=== PATIENT | male | born 1950 | race American Indian/Alaskan Native ===

== ENCOUNTER 2017-12-26 14:46 | Emergency (ER) | payer OTHER ==
[2017-12-26 14:59] VITALS: TEMP 97.6
[2017-12-26] MEDS ORDERED: Sodium Chloride 0.9% 1,000 ML IV ONE (15:11)
[2017-12-26] MEDS ORDERED: Sodium Chloride 0.9% 1,000 ML ONE (15:27)
[2017-12-26 15:34] LABS: BASO % 0.7 % (0.0-2.0); EOS # 0.1 K/uL (0.0-0.7); EOS % 1.1 % (0.0-4.0); HEMOGLOBIN 15.3 g/dL (12.0-18.0); LYMPH # 1.3 K/uL (1.0-4.3); LYMPH % 20.9 % (20.0-40.0); MEAN CELL VOLUME 84.5 fL (80.0-94.0); MEAN CORPUSCULAR HEMOGLOBIN 28.9 pg (27.0-31.0); MEAN CORPUSCULAR HGB CONC 34.2 g/dL (33.0-37.0); MEAN PLATELET VOLUME 7.8 fL (7.2-11.7); MONO # 0.3 K/uL (0.0-0.8); MONO % 5.4 % (0.0-10.0); NEUT # 4.5 K/uL (1.8-7.0); NEUT % 71.9 % (50.0-75.0); RBC 5.3 Mil/uL (4.40-5.90); RED CELL DISTRIBUTION WIDTH 16.5 % (11.5-14.5); WHITE BLOOD COUNT 6.2 K/uL (4.8-10.8)
[2017-12-26 15:44] LABS: INR 1.2; PROTHROMBIN TIME 13.1 SECONDS (9.7-12.2)
--- NOTE | 2017-12-26 15:45 | C.PDOC ---
History Of Present Illness 67 years old male brought to ED by EMS for evaluation of near syncope. Patient states he was cooking in the kitchen and it was hot. Patient states he started sweating and felt lightheaded then went to another room and layed down with the fan facing him. Patient states he felt "more hot" so he checked his blood pressure and found it to be "a little high" so he took his blood pressure medication and called 911. Denies chest pain, SOB, headache, dizziness, or vision changes. As EMS arrived to the patient's home, he was given aspirin. Patient stated on route that he felt better. In addition, patient admits he did not eat today and has been experiencing cold like symptoms such as cough, congestion, and right ear pain for the past few days. Time Seen by Provider: 12/26/17 15:01 Chief Complaint (Nursing): Syncope History Per: Patient, EMS History/Exam Limitations: no limitations Onset/Duration Of Symptoms: Hrs Current Symptoms Are (Timing): Still Present Recent travel outside of the [place]: No Past Medical History Reviewed: Historical Data, Nursing Documentation, Vital Signs Vital Signs: Last Vital Signs Temp 97.6 F 12/26/17 14:54 Pulse 77 12/26/17 16:07 Resp 18 12/26/17 16:07 BP 142/76 12/26/17 16:07 Pulse Ox 96 12/26/17 16:51 - Medical History PMH: HTN Surgical History: Hernia Repair Family History: States: Unknown Family Hx - Social History Hx Alcohol Use: Yes Hx Substance Use: No - Immunization History Hx Tetanus Toxoid Vaccination: No Hx Influenza Vaccination: No Hx Pneumococcal Vaccination: No Review Of Systems Constitutional: Positive for: Sweats Eyes: Negative for: Vision Change ENT: Positive for: Ear Pain (right ear), Nose Congestion Cardiovascular: Negative for: Chest Pain Respiratory: Positive for: Cough. Negative for: Shortness of Breath Gastrointestinal: Negative for: Nausea, Vomiting, Abdominal Pain, Diarrhea Neurological: Negative for: Weakness, Numbness, Dizziness Physical Exam - Physical Exam Appears: Well, Non-toxic, No Acute Distress Skin: Normal Color, Warm, Dry Head: Atraumatic, Normacephalic, No Tenderness, No Swelling Eye(s): bilateral: Normal Inspection, PERRL, EOMI, Other (no nystagmus) Ear(s): Left: Normal, Right: Other (Excessive cerumen. No TM Erythema. ) Oral Mucosa: Moist Throat: Normal, No Erythema, No Exudate Neck: Supple Chest: Symmetrical, No Tenderness Cardiovascular: Rhythm Regular Respiratory: Normal Breath Sounds, No Decreased Breath Sounds, No Rales, No Rhonchi, No Wheezing Gastrointestinal/Abdominal: Soft, No Tenderness, No Distention, Other (Obese) Extremity: Normal ROM, No Pedal Edema, No Deformity Neurological/Psych: Oriented x3, Normal Speech, Normal Motor, Normal Sensation, Other (no focal deficits ) Gait: Steady ED Course And Treatment - Laboratory Results Result Diagrams: 12/26/17 15:31 12/26/17 15:31 O2 Sat by Pulse Oximetry: 96 (RA) Pulse Ox Interpretation: Normal Medical Decision Making Medical Decision Making: impression: near syncope Plan: Ordered EKG, blood work and CXR. Administered IV fluids. Patient on cardiac tech. EKG Results: - Normal sinus rhythm at 74 bpm - RBBB - LAFB - No changes from prior EKG on 08/23/16 Labs reviewed showing hypokalemia. Oral KCL given. Negative troponin and no other acute abnormalities. [place] rule negative. Case discussed with Dr Whalen. Based on negative findings during evaluation and patient remained asymptomatic during ED observation, patient is stable for discharge. Patient remained afebrile well and in no distress. On re-evaluation he reports feeling fine and denies any chest pain, SOB, dizziness or other complaints. He feels comfortable going home. Patient advised to follow up with PCP Dr Aleman in few days for evaluation or return to hospital for any worsening symptoms. Disposition Counseled Patient/Family Regarding: Diagnosis, Need For Followup, Rx Given - Disposition Referrals: Jesse Aleman MD [Staff Provider] - Disposition: HOME/ ROUTINE Disposition Time: 16:56 Condition: GOOD Additional Instructions: apply 1-4 drops in affected ear continue with your normal medications follow up with Dr Aleman in his office in the next few days Return to the emergency department at any time if symptoms persist or worsen. Prescriptions: Carbamide Peroxide [Debrox 15 Ml] 2 drop AD BID #1 bottle Instructions: Near Fainting (DC) Forms: [facility] (French) - POA Present On Arrival: None - Clinical Impression Clinical Impression: Excessive cerumen in ear canal, Near syncope - PA / [employer] / Resident Statement MD/DO has reviewed & agrees with the documentation as recorded. - Scribe Statement The provider has reviewed the documentation as recorded by the Scribe Judi Paul All medical record entries made by the Emileeibjoyce were at my direction and personally dictated by me. I have reviewed the chart and agree that the record accurately reflects my personal performance of the history, physical exam, medical decision making, and the department course for this patient. I have also personally directed, reviewed, and agree with the discharge instructions and disposition.
[2017-12-26 15:47] LABS: ALB/GLOB RATIO 1.2 (1.0-2.1); ALBUMIN 4.6 g/dL (3.5-5.0); ALT/SGPT 29 U/L (21-72); AST/SGOT 30 U/L (17-59); BLOOD UREA NITROGEN 18 mg/dL (9-20); CALCIUM 9.6 mg/dl (8.6-10.4); GFR AFRICAN-AMERICAN > 60; GFR NON-AFRICAN AMERICAN > 60; HDL CHOLESTEROL 45 mg/dL (30-70)
[2017-12-26] MEDS ORDERED: Potassium Chloride 20 mEq ER Tab PO STA (15:51)
[2017-12-26 15:55] LABS: B-TYPE NATRIURETIC PEPTIDE 12.6 pg/mL (0-900)
[2017-12-26 15:58] LABS: LDL CHOLESTEROL 133 mg/dL (0-129)
[2017-12-26] MEDS ORDERED: Potassium Chloride 20 mEq ER Tab PO ONE (16:04)
[2017-12-26 16:09] VITALS: BP 142/76; PULSE 77; RESP 18
[2017-12-26 16:51] VITALS: O2SAT 96
--- NOTE | 2017-12-26 17:08 | RAD ---
Chest x-ray two views History: Chest pain. Comparison: None available. Findings: Mild venous congestion. Right hilar prominence. Biapical pleural thickening; right greater than left. Clinical correlation. Patchy increased markings at the left lung base. Tortuous aorta. Degenerative changes in the spine. Impression: Mild venous congestion. Right hilar prominence. Biapical pleural thickening; right greater than left. Clinical correlation. Patchy increased markings at the left lung base. Tortuous aorta.
--- NOTE | 2017-12-28 19:27 | CARD ---
APPROVED REPORT EKG Measurement Heart [id number] <Conclusion> Normal sinus rhythm with sinus arrhythmia Right bundle branch block Left anterior fascicular block Bifascicular block Minimal voltage criteria for LVH, may be normal variant Abnormal ECG
== END 2017-12-26 17:37 | disposition home or self-care (01) ==
LOC: C.ER 14:46
DX: R55 Syncope and collapse (principal); H61.21 Impacted cerumen, right ear; I10 Essential (primary) hypertension
CPT/HCPCS: 71046; 80053; 80061; 82948; 83880; 84484; 85025; 85610; 85730; 93005; 96360; 99285; J7040